=== PATIENT | female | born 1995 | race Two or more races ===

== ENCOUNTER 2019-12-14 17:18 | Inpatient (IN) | payer MEDICAID, OTHER ==
[~2019-12-14] VITALS: Ht 149.9 cm; Wt 77.1 kg
[2019-12-14] MEDS ORDERED: 0.9 % SODIUM CHLORIDE 10 ML DISP.SYRIN. IV PRN (17:30)
[2019-12-14] MEDS ORDERED: ONDANSETRON PF 4 MG/2 ML VIAL. IVP PRN (17:30)
[2019-12-14] MEDS ORDERED: TERBUTALINE 1 MG/ML VIAL. SQ PRN (17:30)
[2019-12-14] MEDS ORDERED: ACETAMINOPHEN 325 MG TABLET. PO PRN (17:30)
[2019-12-14] MEDS ORDERED: IBUPROFEN 400 MG TABLET. PO PRN (17:30)
[2019-12-14] MEDS ORDERED: OXYTOCIN 30 UNIT/500 ML PREMIX 500 ML IV PRN (17:30)
[2019-12-14] MEDS ORDERED: BUTORPHANOL 2 MG/ML VIAL. IVP PRN ×2 (17:30)
[2019-12-14] MEDS ORDERED: fentaNYL PF VIAL 100 MCG/2 ML VIAL IVP PRN ×3 (17:30)
[2019-12-14] MEDS ORDERED: LIDOCAINE 1% PF 30 ML VIAL. INJ PRN (17:30)
[2019-12-14 18:00] VITALS: BP 145/92
[2019-12-14 18:16] LABS: BILIRUBIN,URINE NEGATIVE (NEG); CLARITY,URINE CLEAR; COLOR,URINE YELLOW; NITRITE,URINE NEGATIVE (NEG); PROTEIN,URINE 30 mg/dL (NEG-TRACE); UROBILINOGEN,URINE 0.2 mg/dL (0.2 mg/dL)
[2019-12-14 18:19] LABS: CREATININE,RANDOM URINE 31.8 mg/dL (Not Establ.)
[2019-12-14 18:28] LABS: SQUAMOUS EPITHELIAL CELL,UR FEW /LPF
[2019-12-14 18:29] LABS: BACTERIA,URINE FEW /HPF (0-FEW); RBC,URINE 0 /HPF (0-2); WBC,URINE 0 /HPF (0-4)
[2019-12-14] MEDS ORDERED: DINOPROSTONE 10 MG SUPP.VAG VG ONE (18:30)
[2019-12-14] MEDS: IV RINGERS,LACTATED 1000ML 1,000 ML IV SCH (18:37)
[2019-12-14] MEDS ORDERED: PNV1TABL25 PO (18:43)
[2019-12-14 18:57] LABS: BASO % 0 % (0-3); EOS % 0 % (0-3); HEMOGLOBIN 12.2 g/dL (12.0-15.5); LYMPH # 1.6 x10^3/uL (1.0-4.8); LYMPH % 19 % (24-48); MEAN CORPUSCULAR HEMOGLOBIN 31 pg (25-35); MEAN CORPUSCULAR HGB CONC 35 g/dL (31-37); MEAN CORPUSCULAR VOLUME 89 fL (79-100); MONO # 0.6 x10^3/uL (0.0-1.1); MONO % 7 % (0-9); NEUT # 6.2 x10^3/uL (1.8-7.7); NEUT % 73 % (31-73); PLATELET COUNT 159 x10^3/uL (140-400); RED BLOOD COUNT 3.92 x10^6/uL (3.50-5.40); RED CELL DISTRIBUTION WIDTH 14.4 % (11.5-14.5); WHITE BLOOD COUNT 8.5 x10^3/uL (4.0-11.0)
[2019-12-14 19:13] LABS: ALBUMIN 2.8 g/dL (3.4-5.0); ALBUMIN/GLOBULIN RATIO 0.7 (1.0-1.7); CALCIUM 8.7 mg/dL (8.5-10.1); CREATININE 0.7 mg/dL (0.6-1.0); GFR 102.8; POTASSIUM 3.8 mmol/L (3.5-5.1); TOTAL BILIRUBIN 0.2 mg/dL (0.2-1.0); TOTAL PROTEIN 6.8 g/dL (6.4-8.2)
[2019-12-15] MEDS ORDERED: diphenhydrAMINE HCL 25 MG CAPSULE PO PRN ×2 (01:30→21:30)
--- NOTE | 2019-12-15 03:35 | PDOC1 ---
OB - History Hx of Present Care: Good Care Ultrasounds: Normal mid trimester US Obstetrical Complications: Pre-eclampsia Medical Complications: None Past Family/Social History * Past Medical, Surgical, Family and Obstetric Histories reviewed from chart. Rubella: Immune RPR/VDRL: Negative GBS Status: Negative HBsAG: Negative OB - Chief Complaint & HPI Date of Admission: Date of Admission: Dec 14, 2019 at 17:18 Chief Complaint/History : 1 Para: 0 EGA: 40 Reason for admission: induction of labor Indication for induction: medical complication (preeclampsia) Admission Nurse Assessment Rev: Yes OB - Admission Exam Physical Exam Vitals: VS - Last 72 Hours, by Label Date Time Temp Pulse Resp B/P (MAP) Pulse Ox O2 Delivery O2 Flow Rate FiO2 12/14/19 18:00 98.8 83 20 145/92 (109) Room Air 98.8 HEENT: Normal Heart: Regular Rate Lungs: Clear Abdomen: Gravid, Non tender, Soft Extremities: Edema Reflexes: Normal Cervical Dilatation: 1cm Effacement: 75% Station: -3 Membranes: Intact Amniotic Fluid: Clear Accelerations: Accelerations Present Decelerations: No decelerations Contractions on Admission: None Text A: 40 wks IUP Preeclampsia P: Admit IOL cervidil, then pitocin. MILES DENNIS Jr, MD Dec 15, 2019 03:35
[2019-12-15] MEDS: IV RINGERS,LACTATED 1000ML 1,000 ML IV SCH ×3 (03:58→19:18)
[2019-12-15] MEDS ORDERED: OXYTOCIN 30 UNIT/500 ML PREMIX 500 ML IV PRN ×2 (06:00→21:30)
[2019-12-15] MEDS ORDERED: ROPIVacaine 0.2% PF 10 ML VIAL. ONE ×3 (10:45→18:45)
[2019-12-15] MEDS ORDERED: L&D EPIDURAL SYRINGE 50 ML ONE ×3 (10:46→17:17)
[2019-12-15] MEDS ORDERED: L&D EPIDURAL 50 ML SYRINGE. ONE (12:00)
--- NOTE | 2019-12-15 21:15 | PDOC ---
VAGINAL DELIVERY DATE DATE: 12/15/19 TIME: 21:14 : 1 Para: 1 EGA: 40 VAGINAL DELIVERY: VTX VACCUM ASSISTED: Yes NUMBER OF PULLS 3 NUMBER OF POP OFFS none MAXIMUM PRESSURE 600 mmgh PLACENTA: Spontaneous 8/9 SEX: Male WEIGHT Weight [3550 gm ] Nuchal Cord: Yes, Times 1 Amniotic Fluid: Thin Meconium PAIN: Epidural EPISIOTOMY: No EXTENSION: Yes (3rd degree midline laceration) REPAIRED WITH 2-0 vicryl EBL 400 ml COMPLICATIONS none CONDITION pt. stable Signs of Intrauterine Infectio: None Shoulder Dystocia: No MILES DENNIS Jr, MD Dec 15, 2019 21:15
[2019-12-15] MEDS ORDERED: MMR per PROTOCOL. MC PRN (21:30)
[2019-12-15] MEDS ORDERED: 0.9 % SODIUM CHLORIDE 10 ML DISP.SYRIN. IV PRN (21:30)
[2019-12-15] MEDS ORDERED: PHENYLEPH/MINERAL OIL/PETROLAT RECTAL OINTMENT TUBE. RC PRN (21:30)
[2019-12-15] MEDS ORDERED: HYDROCORTISONE 1% TOPICAL OINTMENT 30GM TUBE. TP PRN (21:30)
[2019-12-15] MEDS ORDERED: ACETAMINOPHEN 325 MG TABLET. PO PRN (21:30)
[2019-12-15] MEDS ORDERED: SIMETHICONE 80 MG TAB.CHEW PO PRN (21:30)
[2019-12-15] MEDS ORDERED: BENZOCAINE 20% TOPICAL AEROSOL SPRAY 57GM CAN. TP PRN (21:30)
[2019-12-15] MEDS ORDERED: MAGNESIUM HYDROXIDE 2,400 MG/30 ML ORAL.SUSP. PO PRN (21:30)
[2019-12-15] MEDS ORDERED: MAG HYDROX/ALUMINUM HYD/SIMETH 30 ML ORAL.SUSP PO PRN (21:30)
[2019-12-15] MEDS ORDERED: ZOLPIDEM 5 MG TABLET. PO PRN (21:30)
[2019-12-15] MEDS ORDERED: TDaP (Adacel) per PROTOCOL. MC PRN (21:30)
[2019-12-15] MEDS: IBUPROFEN 400 MG TABLET. PO PRN (23:10)
[2019-12-15] MEDS: oxyCODONE/APAP 5/325 1 TAB TABLET PO PRN (23:10)
[2019-12-15 23:35] VITALS: BP 119/85
[2019-12-16 00:34] VITALS: BP 116/78
[2019-12-16 05:05] VITALS: BP 113/76
[2019-12-16 07:35] LABS: BASO # 0.1 x10^3/uL (0.0-0.2); BASO % 0 % (0-3); EOS % 0 % (0-3); HEMATOCRIT 26.2 % (36.0-47.0); HEMOGLOBIN 9.3 g/dL (12.0-15.5); LYMPH # 1.5 x10^3/uL (1.0-4.8); LYMPH % 8 % (24-48); MEAN CORPUSCULAR HEMOGLOBIN 32 pg (25-35); MEAN CORPUSCULAR HGB CONC 35 g/dL (31-37); MEAN CORPUSCULAR VOLUME 90 fL (79-100); MONO # 1.6 x10^3/uL (0.0-1.1); MONO % 8 % (0-9); NEUT # 16.6 x10^3/uL (1.8-7.7); NEUT % 84 % (31-73); PLATELET COUNT 135 x10^3/uL (140-400); RED BLOOD COUNT 2.92 x10^6/uL (3.50-5.40); RED CELL DISTRIBUTION WIDTH 14.7 % (11.5-14.5); WHITE BLOOD COUNT 19.8 x10^3/uL (4.0-11.0)
[2019-12-16] MEDS: DOCUSATE SODIUM 100 MG CAPSULE. PO PRN (08:48)
[2019-12-16] MEDS: MULTIVITAMIN with MINERAL TABLET. PO SCH (08:48)
[2019-12-16] MEDS: IBUPROFEN 400 MG TABLET. PO PRN ×2 (08:48→20:14)
[2019-12-16] MEDS: FERROUS SULFATE 325 MG TABLET. PO SCH (08:48)
[2019-12-16 09:00] VITALS: BP 109/72
[2019-12-16 10:53] LABS: % BANDS 8 % (0-9); % LYMPHS 5 % (24-48); % MONOS 4 % (0-10); % SEGS 83 % (35-66); ANISOCYTOSIS PRESENT; PLT ESTIMATE ADEQUATE (ADEQUATE)
--- NOTE | 2019-12-16 11:56 | NUR ---
Pt. up to BR, voids time one, perineal care given verbalized understanding, Tucks, spray, ice pack, applied. Pt. perineum soft and slightly swollen.
[2019-12-16 12:48] VITALS: BP 107/70
--- NOTE | 2019-12-16 17:12 | PDOC ---
OB Progress Note Date of Service 12/16/19 Time of Evaluation 1700 Notes Pt. feeling well. No complaints. Lab Laboratory Tests Test 12/14/19 17:45 12/14/19 18:25 12/14/19 20:00 12/16/19 04:45 Urine Collection Type Unknown Urine Color Yellow Urine Clarity Clear Urine pH 7.0 (<5.0-8.0) Urine Specific Mobile <=1.005 (1.000-1.030) Urine Protein 30 mg/dL (NEG-TRACE) Urine Glucose (UA) Negative mg/dL (NEG) Urine Ketones (Stick) Negative mg/dL (NEG) Urine Blood Trace (NEG) Urine Nitrite Negative (NEG) Urine Bilirubin Negative (NEG) Urine Urobilinogen Dipstick 0.2 mg/dL (0.2 mg/dL) Urine Leukocyte Esterase Negative (NEG) Urine RBC 0 /HPF (0-2) Urine WBC 0 /HPF (0-4) Urine Squamous Epithelial Cells Few /LPF Urine Bacteria Few /HPF (0-FEW) Urine Random Creatinine 31.8 mg/dL (Not Establ.) Urine Random Total Protein 38.3 mg/dL (Not Establ.) Urine Protein/Creatinine Ratio 1204 mg/g (0-200) White Blood Count 8.5 x10^3/uL (4.0-11.0) 19.8 x10^3/uL (4.0-11.0) Red Blood Count 3.92 x10^6/uL (3.50-5.40) 2.92 x10^6/uL (3.50-5.40) Hemoglobin 12.2 g/dL (12.0-15.5) 9.3 g/dL (12.0-15.5) Hematocrit 35.0 % (36.0-47.0) 26.2 % (36.0-47.0) Mean Corpuscular Volume 89 fL (79-100) 90 fL (79-100) Mean Corpuscular Hemoglobin 31 pg (25-35) 32 pg (25-35) Mean Corpuscular Hemoglobin Concent 35 g/dL (31-37) 35 g/dL (31-37) Red Cell Distribution Width 14.4 % (11.5-14.5) 14.7 % (11.5-14.5) Platelet Count 159 x10^3/uL (140-400) 135 x10^3/uL (140-400) Neutrophils (%) (Auto) 73 % (31-73) 84 % (31-73) Lymphocytes (%) (Auto) 19 % (24-48) 8 % (24-48) Monocytes (%) (Auto) 7 % (0-9) 8 % (0-9) Eosinophils (%) (Auto) 0 % (0-3) 0 % (0-3) Basophils (%) (Auto) 0 % (0-3) 0 % (0-3) Neutrophils # (Auto) 6.2 x10^3/uL (1.8-7.7) 16.6 x10^3/uL (1.8-7.7) Lymphocytes # (Auto) 1.6 x10^3/uL (1.0-4.8) 1.5 x10^3/uL (1.0-4.8) Monocytes # (Auto) 0.6 x10^3/uL (0.0-1.1) 1.6 x10^3/uL (0.0-1.1) Eosinophils # (Auto) 0.0 x10^3/uL (0.0-0.7) 0.0 x10^3/uL (0.0-0.7) Basophils # (Auto) 0.0 x10^3/uL (0.0-0.2) 0.1 x10^3/uL (0.0-0.2) Sodium Level 135 mmol/L (136-145) Potassium Level 3.8 mmol/L (3.5-5.1) Chloride Level 102 mmol/L (98-107) Carbon Dioxide Level 21 mmol/L (21-32) Anion Gap 12 (6-14) Blood Urea Nitrogen 11 mg/dL (7-20) Creatinine 0.7 mg/dL (0.6-1.0) Estimated GFR (Cockcroft-Gault) 102.8 BUN/Creatinine Ratio 16 (6-20) Glucose Level 86 mg/dL (70-99) Calcium Level 8.7 mg/dL (8.5-10.1) Total Bilirubin 0.2 mg/dL (0.2-1.0) Aspartate Amino Transf (AST/SGOT) 19 U/L (15-37) Alanine Aminotransferase (ALT/SGPT) 15 U/L (14-59) Alkaline Phosphatase 204 U/L (46-116) Total Protein 6.8 g/dL (6.4-8.2) Albumin 2.8 g/dL (3.4-5.0) Albumin/Globulin Ratio 0.7 (1.0-1.7) Treponema pallidum Antibody Nonreactive (Nonreactive) Coronavirus (PCR) Not detected (Not Detected) SARS-CoV-2 Antigen (Rapid) Negative (NEGATIVE) Segmented Neutrophils % 83 % (35-66) Band Neutrophils % 8 % (0-9) Lymphocytes % 5 % (24-48) Monocytes % 4 % (0-10) Platelet Estimate Adequate (ADEQUATE) Anisocytosis Present Laboratory Tests Test 12/16/19 04:45 White Blood Count 19.8 x10^3/uL (4.0-11.0) Red Blood Count 2.92 x10^6/uL (3.50-5.40) Hemoglobin 9.3 g/dL (12.0-15.5) Hematocrit 26.2 % (36.0-47.0) Mean Corpuscular Volume 90 fL (79-100) Mean Corpuscular Hemoglobin 32 pg (25-35) Mean Corpuscular Hemoglobin Concent 35 g/dL (31-37) Red Cell Distribution Width 14.7 % (11.5-14.5) Platelet Count 135 x10^3/uL (140-400) Neutrophils (%) (Auto) 84 % (31-73) Lymphocytes (%) (Auto) 8 % (24-48) Monocytes (%) (Auto) 8 % (0-9) Eosinophils (%) (Auto) 0 % (0-3) Basophils (%) (Auto) 0 % (0-3) Neutrophils # (Auto) 16.6 x10^3/uL (1.8-7.7) Lymphocytes # (Auto) 1.5 x10^3/uL (1.0-4.8) Monocytes # (Auto) 1.6 x10^3/uL (0.0-1.1) Eosinophils # (Auto) 0.0 x10^3/uL (0.0-0.7) Basophils # (Auto) 0.1 x10^3/uL (0.0-0.2) Segmented Neutrophils % 83 % (35-66) Band Neutrophils % 8 % (0-9) Lymphocytes % 5 % (24-48) Monocytes % 4 % (0-10) Platelet Estimate Adequate (ADEQUATE) Anisocytosis Present Medications Current Medications Sodium Chloride (Normal Saline Flush) 3 ml QSHIFT PRN IV AFTER MEDS AND BLOOD DRAWS; Start 12/14/19 at 17:30 Ringer's Solution 1,000 ml @ 125 mls/hr Q8H IV Last administered on 12/15/19at 19:18; Start 12/14/19 at 17:30 Butorphanol Tartrate (Stadol) 1 mg PRN Q1HR PRN IVP mild to moderate labor pain; Start 12/14/19 at 17:30 Butorphanol Tartrate (Stadol) 2 mg PRN Q1HR PRN IVP Severe labor pain; Start 12/14/19 at 17:30 Fentanyl Citrate (Fentanyl 2ml Vial) 50 mcg PRN Q30MIN PRN IVP Mild to moderate pain; Start 12/14/19 at 17:30 Fentanyl Citrate (Fentanyl 2ml Vial) 100 mcg PRN Q30MIN PRN IVP Severe pain; Start 12/14/19 at 17:30 Fentanyl Citrate (Fentanyl 2ml Vial) 75 mcg PRN Q10MIN PRN IVP Labor pain; Start 12/14/19 at 17:30 Acetaminophen (Tylenol) 650 mg PRN Q6HRS PRN PO MILD PAIN / TEMP > 100.3'F; Start 12/14/19 at 17:30; Stop 12/15/19 at 21:23; Status DC Ondansetron HCl (Zofran) 4 mg PRN Q4HRS PRN IVP NAUSEA/VOMITING; Start 12/14/19 at 17:30 Terbutaline Sulfate (Brethine) 0.25 mg 1X PRN PRN SQ SEE COMMENTS; Start 12/14/19 at 17:30; Stop 12/15/19 at 17:29; Status DC Lidocaine HCl (Xylocaine 1% Pf 30ml Vial) 30 ml 1X PRN PRN INJ SEE COMMENTS; Start 12/14/19 at 17:30; Stop 12/16/19 at 17:29 Oxytocin/Sodium Chloride 500 ml @ 0 mls/hr CONT PRN IV SEE I/O RECORD Last administered on 12/15/19at 08:53; Start 12/15/19 at 06:00 Oxytocin/Sodium Chloride 500 ml @ 0 mls/hr CONT PRN PRN IV Post delivery bleeding; Start 12/14/19 at 17:30 Ibuprofen (Motrin) 800 mg PRN Q6HRS PRN PO INFLAMMATION; Start 12/14/19 at 17:30; Stop 12/15/19 at 21:23; Status DC Dinoprostone (Cervidil) 10 mg 1X ONCE VG Last administered on 12/14/19at 20:02; Start 12/14/19 at 18:30; Stop 12/14/19 at 18:31; Status DC Diphenhydramine HCl (Benadryl) 50 mg PRN QHS PRN PO INSOMNIA- 1ST CHOICE Last administered on 12/15/19at 01:32; Start 12/15/19 at 01:30 Ropivacaine (Naropin 0.2%) 10 ml STK-MED ONCE .ROUTE ; Start 12/15/19 at 10:45; Stop 12/15/19 at 10:46; Status DC Fentanyl Citrate 50 ml @ As Directed STK-MED ONCE .ROUTE ; Start 12/15/19 at 10:46; Stop 12/15/19 at 10:47; Status DC Fentanyl Citrate 50 ml @ As Directed STK-MED ONCE .ROUTE ; Start 12/15/19 at 14:18; Stop 12/15/19 at 14:19; Status DC Fentanyl Citrate 50 ml @ As Directed STK-MED ONCE .ROUTE ; Start 12/15/19 at 17:17; Stop 12/15/19 at 17:17; Status DC Ropivacaine (Naropin 0.2%) 10 ml STK-MED ONCE .ROUTE ; Start 12/15/19 at 18:45; Stop 12/15/19 at 18:46; Status DC Sodium Chloride (Normal Saline Flush) 10 ml QSHIFT PRN IV AFTER MEDS AND BLOOD DRAWS; Start 12/15/19 at 21:30 Oxytocin/Sodium Chloride 500 ml @ 62.5 mls/hr CONT PRN IV SEE I/O RECORD; Start 12/15/19 at 21:30; Stop 12/16/19 at 05:29; Status DC Acetaminophen (Tylenol) 650 mg PRN Q6HRS PRN PO MILD PAIN / TEMP > 100.3'F Last administered on 12/16/19at 12:47; Start 12/15/19 at 21:30 Ibuprofen (Motrin) 800 mg PRN Q8HRS PRN PO INFLAMMATION/PAIN PREVENTION Last administered on 12/16/19at 08:48; Start 12/15/19 at 21:30 Docusate Sodium (Colace) 100 mg PRN BID PRN PO HARD STOOL Last administered on 12/16/19at 08:48; Start 12/15/19 at 21:30 Magnesium Hydroxide (Milk Of Magnesia) 2,400 mg PRN DAILY PRN PO CONSTIPATION; Start 12/15/19 at 21:30 Al Hydroxide/Mg Hydroxide (Mylanta Plus Xs) 30 ml PRN Q4HRS PRN PO HEARTBURN / GAS; Start 12/15/19 at 21:30 Simethicone (Gas-X) 80 mg PRN AFTMEALHC PRN PO GAS / BLOATING; Start 12/15/19 at 21:30 Diphenhydramine HCl (Benadryl) 25 mg PRN Q6HRS PRN PO ITCHING; Start 12/15/19 at 21:30 Benzocaine (Americaine) 1 spray PRN QID PRN TP TOPICAL PAIN Last administered on 12/15/19at 23:09; Start 12/15/19 at 21:30 Phenyleph/Shark Oil/Min Oil/Petrol (Preparation H) 1 jonathon PRN QID PRN RC RECTAL PAIN; Start 12/15/19 at 21:30 Hydrocortisone (Cortaid) 1 jonathon PRN QID PRN TP PERINEAL PAIN; Start 12/15/19 at 21:30 Ferrous Sulfate (Feosol) 325 mg BIDWMEALS PO Last administered on 12/16/19at 08:48; Start 12/16/19 at 08:00 Zolpidem Tartrate (Ambien) 5 mg PRN QHS PRN PO INSOMNIA, MAY REPEAT X1; Start 12/15/19 at 21:30 Info (Do NOT chart on this placeholder) 1 ea 1X PRN PRN MC SEE COMMENTS; Start 12/15/19 at 21:30 Info (Do NOT chart on this placeholder) 1 ea 1X PRN PRN MC SEE COMMENTS; Start 12/15/19 at 21:30 Oxycodone/ Acetaminophen (Percocet 5/325) 2 tab PRN Q4HRS PRN PO MODERATE PAIN, SEVERE PAIN Last administered on 12/15/19at 23:10; Start 12/15/19 at 21:30 Multivitamins (Thera M Plus) 1 tab DAILY PO Last administered on 12/16/19at 08:48; Start 12/16/19 at 09:00 Fentanyl Citrate (Kgdpiyei-Ojjgo-BW 3 Mcg-0.1%) 150 ml STK-MED ONCE .ROUTE ; Start 12/15/19 at 12:00; Stop 12/16/19 at 09:12; Status DC Ropivacaine (Naropin 0.2%) 20 ml STK-MED ONCE .ROUTE ; Start 12/15/19 at 12:00; Stop 12/16/19 at 09:12; Status DC Active Scripts Active Reported Tablet (Pnv Cmb#95/Ferrous Fumarate/Fa) 1 Each Tablet 1 Tab PO DAILY 30 Days Exam Abd; soft, non tender, fundus firm Assessment PPD#1 s/p Plan of Care: Continue current Tx, Mgmt MILES DENNIS Jr, MD Dec 16, 2019 17:12
[2019-12-16 19:12] VITALS: BP 124/78
[2019-12-16] MEDS: oxyCODONE/APAP 5/325 1 TAB TABLET PO PRN (20:14)
[2019-12-16 22:00] VITALS: BP 115/82
[2019-12-17] MEDS: oxyCODONE/APAP 5/325 1 TAB TABLET PO PRN (06:17)
[2019-12-17] MEDS: IBUPROFEN 400 MG TABLET. PO PRN ×2 (06:18→20:15)
[2019-12-17 06:28] VITALS: BP 116/77
[2019-12-17 08:20] VITALS: BP 109/79
[2019-12-17] MEDS: MULTIVITAMIN with MINERAL TABLET. PO SCH (09:55)
[2019-12-17] MEDS: FERROUS SULFATE 325 MG TABLET. PO SCH (09:56)
[2019-12-17] MEDS: DOCUSATE SODIUM 100 MG CAPSULE. PO PRN (09:56)
--- NOTE | 2019-12-17 10:01 | PDOC3 ---
OB DISCHARGE SUMMARY DATE OF ADMISSION: 12/15/19 DATE OF DISCHARGE: 12/17/19 REASON FOR ADMISSION: Onset of labor INTRAPARTUM PROCEDURES: Spontanous Vag Deliv DISCHARGE DIAGNOSIS: Term Delivered DISCHARGE INFORMATION: Activity (ad hero), Diet (regular), Instructions (pelvic rest x 6 wks) HOSPITAL COURSE Term gestation delivered vaginally without complications. MILES DENNIS Jr, MD Dec 17, 2019 10:01
[2019-12-17] MEDS ORDERED: IBUP-1027 PO (10:02)
--- NOTE | 2019-12-17 10:03 | DISCH ---
DISCHARGE INSTRUCTIONS Condition on Discharge Condition on Discharge: Stable Activity After Discharge Activity Instructions for Disc: Activity as tolerated Lifting Instructions after Dis: No heavy lifting Driving Instructions after Dis: Do not drive today Diet after Discharge Diet after Discharge: Regular Contacting the DRMarylou after DC Call your doctor for: Concerns you may have Follow-Up Follow up with: Genie in 6 wks MILES DENNIS Jr, MD Dec 17, 2019 10:03
[2019-12-17 11:15] VITALS: BP 117/76
[2019-12-17 20:00] VITALS: BP 140/81
--- NOTE | 2019-12-18 19:07 | PATHOLOGY ---
[facility] Accession Number: [id number] . 01 Material submitted: . placenta - PLACENTA WITH CORD . 01 Clinical history: . EDC - NOT PROVIDED, , ELEVATED BLOOD PRESSURE, ELEVATED MATERNAL TEMP . 02 Diagnosis: 479 gram term placenta of an estimated 40 weeks 3 days gestation with attached membranes and umbilical cord and separate segment of umbilical cord: - Acute chorionitis and focal acute chorioamnionitis of placental membranes. - Acute subchorionitis and focal acute chorioamnionitis of chorionic plate. - Acute vasculitis of chorionic plate. - Acute phlebitis of umbilical cord, focal. - Placental infarct, small. LBQ 12/18/2019 1633 Local . 02 Comment: The results are telephoned to Dr. Greer at 4:20 p.m. on 12/18/19. (JPM/db; 12/18/2019) . 02 Electronically signed: . Eze Mendez MD, Pathologist NPI- [id number] . 01 Gross description: . The specimen is received in formalin labeled "Jeffry Murillo, placenta" and consists of a circular cross placenta measuring 18.0 x 17.1 x 3.3 cm and weighing 479 g after removal of membranes and umbilical cord. The membranes are pink-dhillon, thin, translucent, and slimy with moderate retro-membranous clot. The surface is bluegray and well vascularized with an eccentrically inserted 3 vessel umbilical cord, 4.0 cm from edge. The cord measures 26.0 cm in length and ranging from 0.8-1.6 cm in diameter. Received separately is a clamped segment of umbilical cord measuring 17.5 cm in length and up to 1.6 cm in diameter. Both segments of cord show moderate twists and no true knots. The maternal surface shows complete and intact cotyledons with moderate clot around the disc periphery. Sectioning reveals a maroon-red and spongy parenchyma with a single pink dhillon lesion measuring 1.0 cm. Plate Filler sections are submitted as follows: . A1: Surface vessels A2: Umbilical cord and membrane rolls A3: Disc periphery with clot A4: Full-thickness sections A5: Lesion (SDY; 12/17/2019) . SYU/SYU 12/17/2019 1658 Local . 02 Pathologist provided ICD-10: O41.1230, Z3A.40 . 02 CPT . 344254 Specimen Comment: A courtesy copy of this report has been sent to [phone] Specimen Comment: Report sent to Performed at: 01 [facility] [address] [facility] [address], [place] [id number] MD Elio Delacruz MD Phone: [phone] Performed at: 02 [facility] [address] [place], [place] [id number] MD Eze Mendez MD Phone: [phone]
== END 2019-12-17 20:40 | disposition home or self-care (01) | DRG 768 ==
LOC: 3 SO LND 17:18 → OBSVTOIN 17:37 → 3 NORTH 12-15 23:30
PROVIDERS: ADMIT Obstetrics & Gynecology; ATTEND Obstetrics & Gynecology
PROC: 10D07Z6 Extraction of Products of Conception, Vacuum, Via Natural or Artificial Opening (ICD-10-PCS; principal; 2019-12-15)
PROC: 0DQR0ZZ Repair Anal Sphincter, Open Approach (ICD-10-PCS; 2019-12-15)
PROC: 3E0R3BZ Introduction of Anesthetic Agent into Spinal Canal, Percutaneous Approach (ICD-10-PCS; 2019-12-15)
PROC: 00HU33Z Insertion of Infusion Device into Spinal Canal, Percutaneous Approach (ICD-10-PCS; 2019-12-15)
DX: O69.81X0 Labor and delivery complicated by cord around neck, without compression, not applicable or unspecified (principal); Z37.0 Single live birth; O70.20 Third degree perineal laceration during delivery, unspecified; O14.94 Unspecified pre-eclampsia, complicating childbirth; O77.0 Labor and delivery complicated by meconium in amniotic fluid; Z3A.40 40 weeks gestation of pregnancy; Z20.828 Contact with and (suspected) exposure to other viral communicable diseases
CPT/HCPCS: 36415; 80053; 81001; 82570; 84156; 85007; 85025; 86592; 86850; 86900; 86901; 87426; 88307; G0378; G0379; J2590; J2795; J3010; J7120; Q0163; U0003-CS